=== PATIENT | male | born 1995 | race Caucasian/White ===

== ENCOUNTER 2018-02-12 15:06 | Emergency (ER) | payer OTHER ==
[2018-02-12 15:35] VITALS: BP 133/83
[2018-02-12] MEDS ORDERED: Ketorolac INJ* 60 MG/2 ML VIAL IM ONE (15:53)
--- NOTE | 2018-02-12 16:06 | UC ---
Back Pain HPI - HPI Summary HPI Summary: Pt c/o sudden onset of left lower back pain and stiffness after standing up at work and lifting heavy cable. Pt states he felt a Pop and left lower back then sudden onset of pain. Pain left lower back lateral to spine. - History of Current Complaint Chief Complaint: UCBackPain Stated Complaint: WC/HURT BACK Time Seen by Provider: 02/12/18 15:38 Hx Obtained From: Patient Onset/Duration: Sudden Onset, Lasting Hours, Still Present Timing: Constant Severity Initially: Moderate Severity Currently: Moderate Pain Intensity: 7 Back Pain: Is Discrete @ - left lower, Radiates To - across low back Character: Dull, Aching, Spasmodic, Stiffness Aggravating Factor(s): Movement, Lifting, Bending Alleviating Factor(s): Position Associated Signs And Symptoms: Positive: Negative - Risk Factors AAA Risk Factors: Negative TAD Risk Factors: Negative Cauda Equina Risk Factors: Negative Epidural Abscess Risk Factors: Negative - Allergies/Home Medications Allergies/Adverse Reactions: Allergies Allergy/AdvReac Type Severity Reaction Status Date / Time cats Allergy Eyes Uncoded 02/12/18 15:36 Itchy/Swollen/Red/Watery Home Medications: Home Medications Migraine Tabs 2 tab PO ONCE PRN 02/12/18 [History Confirmed 02/12/18] PMH/Surg Hx/FS Hx/Imm Hx Previously Healthy: Yes - Surgical History Surgical History: None - Family History Known Family History: Positive: None, Cardiac Disease, Hypertension Negative: Diabetes - Social History Occupation: Employed Full-time Lives: With Family Alcohol Use: Occasionally Substance Use Type: None Smoking Status (MU): Heavy Every Day Tobacco Smoker Type: Cigarettes Amount Used/How Often: 1/2 pack daily Have You Smoked in the Last Year: Yes - Immunization History Most Recent Influenza Vaccination: not this season Review of Systems Constitutional: Negative Skin: Negative Eyes: Negative ENT: Negative Respiratory: Negative Cardiovascular: Negative Gastrointestinal: Negative Genitourinary: Negative Motor: Decreased ROM Neurovascular: Negative Musculoskeletal: Arthralgia, Decreased ROM - low back, Myalgia Neurological: Negative Psychological: Negative Is Patient Immunocompromised?: No All Other Systems Reviewed And Are Negative: Yes Physical Exam Triage Information Reviewed: Yes Appearance: Pain Distress Vital Signs: Initial Vital Signs Temp 98.1 F 02/12/18 15:28 Pulse 77 02/12/18 15:28 Resp 20 02/12/18 15:28 BP 133/83 02/12/18 15:28 Pulse Ox 99 02/12/18 15:28 Vital Signs Reviewed: Yes Eye Exam: Normal ENT: Positive: Hearing grossly normal Respiratory: Positive: No respiratory distress Musculoskeletal Exam: Other Musculoskeletal: Positive: Other: - low back "flat", absence of low back lordosis Neurological Exam: Normal Psychological Exam: Normal Skin Exam: Normal Back Pain Course/Dx - Differential Dx/Diagnosis Differential Diagnosis/HQI/PQRI: Herniated Disc, Strain, Sprain Provider Diagnoses: low back strain. low back muscle spasm Discharge - Sign-Out/Discharge Documenting (check all that apply): Discharge/Admit/Transfer - Discharge Plan Condition: Stable Disposition: HOME Prescriptions: Cyclobenzaprine TAB* [Flexeril 10 MG TAB*] 10 mg PO TID PRN #21 tab PRN Reason: Pain Patient Education Materials: Low Back Strain (ED), Lower Back Exercises (ED) Forms: *Work Release Referrals: Carlitos Reyna MD [Primary Care Provider] - If Needed - Billing Disposition and Condition Condition: STABLE Disposition: HOME
== END 2018-02-12 16:25 | disposition home or self-care (01) ==
LOC: UCCORT 15:06
DX: S39.012A Strain of muscle, fascia and tendon of lower back, initial encounter (principal); X50.0XXA Overexertion from strenuous movement or load, initial encounter; Y92.9 Unspecified place or not applicable; F17.210 Nicotine dependence, cigarettes, uncomplicated
CPT/HCPCS: 96372; 99212; G0463; J1885